=== PATIENT | male | born 1995 | race Asian ===

== ENCOUNTER 2017-03-02 17:35 | Emergency (ER) | payer SELFPAY ==
[2017-03-02 17:41] VITALS: BP 134/79; PULSE 67; RESP 16; TEMP 97.9; O2SAT 98
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
== END 2017-03-02 18:30 | disposition home or self-care (01) ==
DX: S80.02XA Contusion of left knee, initial encounter (principal); M92.52 Juvenile osteochondrosis of tibia tubercle; S80.212A Abrasion, left knee, initial encounter; S50.812A Abrasion of left forearm, initial encounter; S70.212A Abrasion, left hip, initial encounter; V18.4XXA Pedal cycle driver injured in noncollision transport accident in traffic accident, initial encounter; Y92.410 Unspecified street and highway as the place of occurrence of the external cause; Y93.89 Activity, other specified
CPT/HCPCS: L1830

== ENCOUNTER 2017-08-13 23:27 | Emergency (ER) | payer SELFPAY ==
[2017-08-13 23:35] VITALS: RESP 18
[2017-08-14] MEDS ORDERED: fentaNYL 100 MCG/2 ML INJ IVP ONE (01:02)
--- NOTE | 2017-08-14 01:26 | EDPHY ---
H & P Stated Complaint: RT SHOULDER DISLOCATION FRTOM PLAYINF BASKETBALL HPI/ROS: HPI: The patient presents with right shoulder pain and deformity which occurred about 2 hours prior to presentation while he was playing basketball. He rates his right arm up to block a shot and felt his shoulder pop out of place. As he does not have any numbness or tingling of his shoulder. He has prior history of shoulder dislocation several years ago in [place]. REVIEW OF SYSTEMS Constitutional: No fever, no chills. Musculoskeletal: No back pain. Skin: No rashes. Neurological: No headache. PMHx: Healthy, college student TRAUMA PHYSICAL General Appearance: Alert, no distress Head: Atraumatic Neck: Non- tender, trachea midline Respiratory: Breathing comfortably Cardiovascular: Regular rate and rhythm Skin: No lacerations, No abrasion Back: No midline T/L/S pain Extremities: Right shoulder with obvious deformity, sensation is intact throughout arms, 2+ radial pulses Source: Patient Exam Limitations: No limitations - Personal History Current Tetanus/Diphtheria Vaccine: Yes - Medical/Surgical History Hx Asthma: No Hx Chronic Respiratory Disease: No Hx Diabetes: No Hx Cardiac Disease: No Hx Renal Disease: No Hx Cirrhosis: No Hx Alcoholism: No Hx HIV/AIDS: No Hx Splenectomy or Spleen Trauma: No Other PMH: DISLOCATED RT SHOULDER , - Social History Smoking Status: Never smoked Constitutional: Initial Vital Signs Temperature (C) 37.1 C 08/13/17 23:33 Heart Rate 86 08/13/17 23:33 Respiratory Rate 18 08/13/17 23:33 Blood Pressure 127/95 H 08/13/17 23:33 O2 Sat (%) 96 08/13/17 23:33 O2 Delivery Mode Room Air Allergies/Adverse Reactions: No Known Allergies Allergy (Unverified 03/02/17 17:41) Home Medications: Medication Instructions Recorded NK [No Known Home Meds] 03/02/17 Medical Decision Making - Diagnostics Imaging Results: Shoulder x-ray two view shows no fracture, no dislocation, interpreted by me, radiology interpretation is pending. Procedures: REDUCTION Procedure: Dislocation reduction. Indication: Dislocation The right shoulder was reduced in the usual fashion using FARES technique without complications. Post reduction the patient's neurovascular exam is normal. Post reduction x-ray demonstrates reduction of the joint to the anatomic position. The procedure was performed by myself. Differential Diagnosis: This healthy 21-year-old male who presents with right shoulder pain and deformity, concerning for recurrent shoulder dislocation. Other possibilities include fracture or strain. In the emergency department, intra-articular joint injection was performed by me with bupivacaine 0.5%, total of 5 mL is. The patient was given fentanyl and then his shoulder was reduced. Postprocedural x-ray shows shoulder normal alignment. He will be discharged with a sling for the next few days and instructions for orthopedic follow-up. - Data Points Medications Given: Discontinued Medications Fentanyl (Sublimaze) 100 mcg IVP EDNOW ONE Stop: 08/14/17 01:03 Last Admin: 08/14/17 01:17 Dose: 100 mcg Departure - Departure Disposition: Home, Routine, Self-Care Clinical Impression: Shoulder dislocation Qualifiers: Encounter type: initial encounter Laterality: right Qualified Code(s): S43.004A - Unspecified dislocation of right shoulder joint, initial encounter Condition: Good Instructions: Shoulder Dislocation (ED) Additional Instructions: Please use rest, ice, ibuprofen 400 mg every 6 hours as needed for pain. Please keep the sling on for the next 3 days. I have given you information for the orthopedist to follow up with. Referrals: Rafat Ceja MD [Medical Doctor] - As per Instructions
[2017-08-14 02:45] VITALS: BP 142/75; PULSE 56; TEMP 97.7; O2SAT 95
== END 2017-08-14 02:20 | disposition home or self-care (01) ==
PROC: 0RSJXZZ Reposition Right Shoulder Joint, External Approach (ICD-10-PCS; principal; 2017-08-13)
DX: S43.004A Unspecified dislocation of right shoulder joint, initial encounter (principal); X58.XXXA Exposure to other specified factors, initial encounter; Y99.8 Other external cause status; Y93.67 Activity, basketball
CPT/HCPCS: 96374; J3010

== ENCOUNTER 2017-09-22 21:12 | Emergency (ER) | payer OTHER ==
[2017-09-22 21:17] VITALS: TEMP 97.7
[2017-09-22] MEDS ORDERED: fentaNYL 100 MCG/2 ML INJ IVP ONE ×3 (21:24→21:53)
[2017-09-22] MEDS ORDERED: fentaNYL 100 MCG/2 ML INJ ONE (21:44)
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
[2017-09-22] MEDS ORDERED: ONDANSETRON DISINTEGRATING 4 MG TAB ONE (22:41)
[2017-09-22] MEDS ORDERED: ONDANSETRON DISINTEGRATING 4 MG TAB PO ONE (23:02)
[2017-09-22 23:30] VITALS: RESP 16
[2017-09-23] MEDS ORDERED: LORazepam 1 MG TAB PO ONE (00:23)
[2017-09-23 00:31] VITALS: BP 142/73; PULSE 74; O2SAT 99
== END 2017-09-23 00:50 | disposition home or self-care (01) ==
PROC: 0RSJXZZ Reposition Right Shoulder Joint, External Approach (ICD-10-PCS; principal; 2017-09-22)
DX: S43.004A Unspecified dislocation of right shoulder joint, initial encounter (principal); W51.XXXA Accidental striking against or bumped into by another person, initial encounter; Y99.8 Other external cause status; Y93.67 Activity, basketball
CPT/HCPCS: 96374; J3010

== ENCOUNTER 2018-02-19 18:46 | Emergency (ER) | payer OTHER ==
[2018-02-19 19:05] VITALS: TEMP 97.9
[2018-02-19] MEDS ORDERED: fentaNYL 100 MCG/2 ML INJ IVP ONE (19:09)
--- NOTE | 2018-02-19 20:06 | EDPHY ---
General Time Seen by Provider: 02/19/18 19:25 Narrative: CHIEF COMPLAINT: Shoulder injury HISTORY OF PRESENT ILLNESS: Patient complains of right shoulder pain. He was playing basketball just prior to arrival. He says he went up to grab the room when his right shoulder dislocated. Sudden onset of severe pain. He has dislocated the shoulder 3 times before. No position of comfort. No numbness or tingling. No injury elsewhere. He has seen an orthopedist for this in the past with no surgical intervention. No other associated complaints or modifying factors. REVIEW OF SYSTEMS: Ten systems reviewed and are negative unless otherwise noted in the HPI PCP: None SPECIALISTS: Orthopedist locally. He does not remember his name PAST MEDICAL HISTORY: Right shoulder dislocations x3 PAST SURGICAL HISTORY: No surgical history SOCIAL HISTORY: Nonsmoker. [employer] student. Originally from [place]. Moved here 4 years ago FAMILY HISTORY: Noncontributory EXAMINATION General Appearance: Alert, no distress Head: normocephalic, atraumatic Eyes: Pupils equal and round, no conjunctival pallor or injection ENT, Mouth: Mucous membranes moist. Airway widely patent. Neck: Normal inspection, supple, non-tender Respiratory: Lungs are clear to auscultation. No wheezing rhonchi or crackles Cardiovascular: Regular rate and rhythm. Symmetric radial pulses 2+. Neurological: A&O, nonfocal. Symmetric sensation to the dorsum of both hands, palmar surface of both hands. Symmetric interossei strength. Skin: Warm and dry, no rash. Good signs of perfusion. No laceration or puncture. Extremities: Step-off deformity and tenderness of the right shoulder. Range of motion not tested. Range of motion of the right wrist and interossei are intact. DIFFERENTIAL DIAGNOSES: Including but not limited to shoulder dislocation, subluxation, humeral head fracture, sprain, strain MDM: 7:25 p.m. Closed dislocation of the right shoulder with no obvious fracture on initial plain film. He is neurovascular intact distally with symmetric sensation, symmetric interossei strength and symmetric radial pulses. Proceed with reduction of the shoulder. 7:40 p.m. Successful closed reduction at bedside without procedural sedation. He tolerated this well. His radial pulses were symmetric pre and postprocedure. He reports significant improvement in his pain 8:05 p.m. Right shoulder has been reduced successfully with good anatomic alignment as evidenced on x-ray. He has been placed in a sling. I have re-evaluated him he is feeling significantly better. He has no numbness or paresthesia. We discussed minimal weight-bearing right shoulder. We discussed no abduction of the shoulder. We discussed mandatory orthopedic follow-up. He is declining any pain medication. We discussed ice and ibuprofen. He is comfortable with this plan and discharged home stable condition. PROCEDURE: Closed reduction of shoulder Consent: Verbal Location: Right shoulder Anesthesia: Intra-articular Marcaine, 0.5%, 7 mL. 100 mcg fentanyl IV. Procedure: After time-out and verbal consent, I applied traction to the right arm with massage of the deltoid muscle and the humeral head. There was also manipulation of the scapula by Dr. Epstein. I was able to hold traction for nearly 7 min and massage the deltoid until he spontaneously reduced. This was tolerated well with symmetric radial pulses postprocedure. Complications: None Post-reduction film: Successful reduction. No fracture SUPERVISION: Patient was evaluated and examined in conjunction with my secondary supervising physician as documented. We have both examined the patient. - Diagnostics Imaging Results: Imaging Impressions Shoulder X-Ray 02/19/18 19:08 Impression: 1. Anterior dislocation right shoulder at the glenohumeral joint. Shoulder X-Ray 02/19/18 19:40 Impression: Normal position of the right humeral head postreduction. No fracture seen. - History Smoking Status: Never smoked - Objective Vital Signs: Initial Vital Signs Temperature (C) 97.9 F 02/19/18 19:01 Heart Rate 94 02/19/18 19:01 Respiratory Rate 17 02/19/18 19:01 Blood Pressure 140/83 H 02/19/18 19:01 O2 Sat (%) 987 H 02/19/18 19:01 O2 Delivery Mode Room Air Allergies/Adverse Reactions: No Known Allergies Allergy (Verified 09/22/17 21:17) Home Medications: Medication Instructions Recorded NK [No Known Home Meds] 03/02/17 Medications Given: Discontinued Medications Fentanyl (Sublimaze) 100 mcg IVP EDNOW ONE Stop: 02/19/18 19:10 Last Admin: 02/19/18 19:23 Dose: 100 mcg Departure - Departure Disposition: Home, Routine, Self-Care Clinical Impression: Dislocation, shoulder, anterior Qualifiers: Encounter type: initial encounter Laterality: right Qualified Code(s): S43.014A - Anterior dislocation of right humerus, initial encounter Condition: Good Instructions: Shoulder Dislocation (ED) Additional Instructions: 1. Shoulder sling as discussed until seen by orthopedist 2. Ice applied often as needed 3. Ibuprofen 400 mg every 6-8 hours as needed 4. Contact orthopedist as provided for outpatient care or your established orthopedist if you recall who they are 5. ED precautions as discussed Referrals: Montez Dinh MD [Medical Doctor] - As per Instructions Print Language: Yoruba Mandarin
[2018-02-19 20:32] VITALS: BP 139/84; PULSE 73; RESP 16; O2SAT 94
== END 2018-02-19 20:29 | disposition home or self-care (01) ==
PROC: 0RSJXZZ Reposition Right Shoulder Joint, External Approach (ICD-10-PCS; principal; 2018-02-19)
DX: S43.014A Anterior dislocation of right humerus, initial encounter (principal); X50.9XXA Other and unspecified overexertion or strenuous movements or postures, initial encounter; Y99.8 Other external cause status; Y93.67 Activity, basketball
CPT/HCPCS: 96374; J3010

== ENCOUNTER 2018-11-04 18:54 | Emergency (ER) | payer SELFPAY ==
[2018-11-04] MEDS ORDERED: fentaNYL 100 MCG/2 ML INJ IVP ONE (19:14)
[2018-11-04] MEDS ORDERED: PROPOFOL 200 MG/20 ML VIAL ONE (19:17)
[2018-11-04] MEDS ORDERED: PROPOFOL 200 MG/20 ML VIAL IVP ONE (19:19)
--- NOTE | 2018-11-04 19:44 | EDPHY ---
H & P Stated Complaint: Pt dislocated R shoulder, unable to reduce by certified personal trainer, denies LOC Time Seen by Provider: 11/04/18 19:13 HPI/ROS: Chief Complaint: Shoulder pain HPI: 23-year-old male with a history of multiple shoulder dislocations in the past was playing basketball tonight when he felt a pop in feels he dislocated his shoulder. The certified personal trainer at the [facility] attempted to reduce it without success. Is complaining of significant pain. No numbness or weakness. No other injuries. Last ate something about 4 hr ago. ROS: 10 systems were reviewed and were negative except those elements noted in the HPI. PMH: Multiple shoulder dislocations Social History: No smoking, no alcohol, no recreational drug use Family History: non-contributory Physical Exam: Gen: Awake, Alert, No Distress HEENT: Nose: no rhinorrhea Eyes: PERRLA, EOMI Mouth: Moist mucosa Neck: Supple, no JVD Chest: nontender, lungs clear to auscultation Heart: S1, S2 normal, no murmur Abd: Soft, non-tender, no guarding Back: no CVA tenderness, no midline tenderness Ext: Right shoulder held in abduction and internal rotation with deformity consistent with dislocation Skin: no rash Neuro: CN II-XII intact, Sensation grossly intact, Strength 5/5 in bilateral upper and lower extremities - Personal History Current Tetanus/Diphtheria Vaccine: Unsure - Medical/Surgical History Hx Asthma: No Hx Chronic Respiratory Disease: No Hx Diabetes: No Hx Cardiac Disease: No Hx Renal Disease: No Hx Cirrhosis: No Hx Alcoholism: No Hx HIV/AIDS: No Hx Splenectomy or Spleen Trauma: No Other PMH: DISLOCATED RT SHOULDER. - Social History Smoking Status: Never smoked Constitutional: Initial Vital Signs Temperature (C) 36.6 C 11/04/18 18:58 Heart Rate 80 11/04/18 18:58 Respiratory Rate 18 11/04/18 18:58 O2 Sat (%) 97 11/04/18 18:58 O2 Delivery Mode [Post Oxymizer Procedure 1st] O2 Delivery Mode [Procedural Oxymizer 1st] O2 Delivery Mode [.Immediate Oxymizer Pre-Procedure] O2 Delivery Mode Room Air O2 (L/minute) [Post Procedure 15 1st] O2 (L/minute) [Procedural 1st] 15 O2 (L/minute) [.Immediate Pre- 15 Procedure] Allergies/Adverse Reactions: No Known Allergies Allergy (Verified 09/22/17 21:17) Home Medications: Medication Instructions Recorded NK [No Known Home Meds] 03/02/17 Medical Decision Making Procedures: Procedure: Procedural sedation. A pre-sedation evaluation was completed on the patient at 7:15 p.m.. Patient is an appropriate candidate for procedural sedation. The risks of the sedation were discussed with the patient. A time out was completed. The patient was sedated with fentanyl 100 mcg and propofol 70 mg. The patient was monitored with continuous pulse oximetry and case monitor. There were no complications and no significant hypoxemia. I remained at the bedside for the sedation. The total time I spent in the procedural sedation was 20 min. Procedure: Dislocation reduction. The shoulder was reduced in the usual fashion without complications. Post reduction the patient's neurovascular exam is normal. Post reduction x-ray demonstrates reduction of the joint to the anatomic position. The procedure was performed by myself. ED Course/Re-evaluation: Attempted reduction with analgesia but no sedation unsuccessful. The patient sedated by me and successfully reduced. Patient awake Alert. Tolerated procedure well. Will discharge with follow-up with Orthopedics for further evaluation and possible repair. Patient will be discharged with sling. He is awake alert and appropriate. - Data Points Medications Given: Discontinued Medications Fentanyl (Sublimaze) 100 mcg IVP EDNOW ONE Stop: 11/04/18 19:15 Last Admin: 11/04/18 19:14 Dose: 100 mcg Propofol (Diprivan) 70 mg IVP EDNOW ONE Stop: 11/04/18 19:20 Last Admin: 11/04/18 19:20 Dose: 70 mg Departure - Departure Disposition: Home, Routine, Self-Care Clinical Impression: Shoulder dislocation Condition: Good Instructions: Shoulder Dislocation (ED), Moderate Sedation (ED) Additional Instructions: Keep you shoulder in the sling until your seen by the orthopedist. Follow up with orthopedist in 3-4 days for further evaluation. Return to the emergency department for increasing pain, numbness, weakness, fevers, or any other concerns. Referrals: Tristian Franklin MD [Medical Doctor] - As per Instructions
[2018-11-04 20:30] VITALS: BP 123/70
== END 2018-11-04 20:29 | disposition home or self-care (01) ==
PROC: 0RSJXZZ Reposition Right Shoulder Joint, External Approach (ICD-10-PCS; principal; 2018-11-04)
DX: S43.004A Unspecified dislocation of right shoulder joint, initial encounter (principal); X50.9XXA Other and unspecified overexertion or strenuous movements or postures, initial encounter; Y92.214 College as the place of occurrence of the external cause; Y93.67 Activity, basketball; Y99.9 Unspecified external cause status
CPT/HCPCS: 96374; J2704